=== PATIENT | female | born 1965 | race Caucasian/White ===

== ENCOUNTER 2016-06-23 18:43 | Emergency (ER) | payer BC, OTHER ==
[~2016-06-23] VITALS: Ht 162.6 cm; Wt 83.4 kg
[~2016-06-23 18:43] MED LIST: AMOXICILLIN500 M1 PO; ANAPROX DS550 M1 PO; ASPIR-LOW81 MG PO; ATORVASTATIN CA20 MG PO; BACTRIM,SEPT1 TABLET PO; BENTYL2 MG/ML PO; BENTYL20 MG PO; CIPRO500 MG PO; CITALOPRAM HBR20 M1 PO; COLACE100 MG PO; DELTASONE20 M1 PO; DOXYCYCLINE150 MG PO; FIORICET,ESG1 TABLET PO; FLEXERIL10 MG PO; FLOMAX0.4 MG PO; FLONASE16 G1 BOTH NARES; HYCODAN SYRUP480 ML PO; HYDROCODON-ACE1 EAC7 PO; KEFLEX500 MG PO; LEXAPRO10 MG PO; LIPITOR20 MG PO; LISINOPRIL10 MG PO; LORTAB 5-325 M1 EACH PO; MECLIZINE HCL25 MG PO; MEDROL DOSEPAK4 MG PO; MIRALAX17 GM PO; MIRALAX255 GM PO; MOTRIN600 MG PO; MOTRIN800 MG PO; NAPROSYN500 MG PO; NOHOMEMEDS; NORCO 5/3251 TABLET PO; PERCOCET 5/31 TABLET PO; PHENERGAN-CODE120 ML PO; PREDNISONE20 MG PO; PRILOSEC40 MG PO; PriLOSEC PO; REGLAN10 MG PO; TAMSULOSIN HCL0.4 MG PO; TESSALON PERLE100 MG PO; TYLENOL EXTRA500 MG PO; TYLENOL WITH C1 EACH PO; VENTOLIN HFA18 GM IH; VICODIN 5-5001 EACH PO; VICODIN,LORT1 TABLET PO; WELLBUTRIN SR150 MG PO; ZITHROMAX Z-PA250 MG PO; ZOFRAN ODT8 MG PO; ZOFRAN4 MG PO; ZOLOFT50 MG PO; ZYVOX600 MG PO
[2016-06-23 19:36] LABS: ADD MIUA? YES; BILIRUBIN NEGATIVE; BLOOD NEGATIVE; COLOR YELLOW ((YELLOW)); GLUCOSE (STRIP) NEGATIVE; KETONES NEGATIVE; LEUKOCYTES NEGATIVE; NITRITE NEGATIVE; PROTEIN (STRIP) NEGATIVE; SPECIFIC GRAVITY 1.023 (1.000-1.030); UROBILINOGEN 0.2 MG/DL (0.2-1.0)
[2016-06-23 19:42] LABS: HEMATOCRIT 40.3 % (36.0-46.0); MCH 29.1 PG (29.0-34.0); MCHC 33.3 G/DL (30.0-36.0); MCV 87.6 FL (83-99); MEAN PLAT.VOLUME 10.3 uM^3 (9.5-12.4); PLATELET COUNT 239 K/uL (156-360); RBC DIS.WIDTH-CV 13.1 % (11.8-14.6); RBC DIS.WIDTH-SD 42.3 % (39-53); WHITE BLOOD COUNT 5.4 K/uL (4.1-10.2)
[2016-06-23 19:50] LABS: BACTERIA RARE /HPF; EPITHELIAL CELLS 2+ /HPF; MUCUS TRACE /LPF; RED BLOOD CELLS 0-5 /HPF (0-5); UCUL ADDED? NO; WHITE BLOOD CELLS 0-5 /HPF (0-5)
[2016-06-23 19:50] LABS: CHLORIDE 107 mEq/L (99-109); POTASSIUM 3.6 mEq/L (3.7-5.4); SODIUM 140 mEq/L (136-147)
[2016-06-23 19:52] LABS: GLUCOSE 91 mg/dL (70-99)
[2016-06-23 19:53] LABS: ANION GAP 9 MEQ/L (2-14)
[2016-06-23 19:56] LABS: GFR ESTIMATE (CALCULATED) > 59 mL/min/
[2016-06-23 19:57] LABS: UREA NITROGEN (BUN) 10 mg/dL (9-23)
[2016-06-23 21:55] LABS: TOTAL BILIRUBIN 0.3 mg/dL (0.0-1.0)
[2016-06-23] MEDS ORDERED: ZOFRAN ODT4 MG PO (21:55)
[2016-06-23] MEDS ORDERED: BENTYL20 MG PO (21:55)
[2016-06-23 21:56] LABS: ALKALINE PHOSPHATASE 108 IU/L (3-129)
[2016-06-23 21:58] LABS: DIRECT BILIRUBIN 0.1 mg/dL (0.0-0.3)
[2016-06-23 22:00] VITALS: BP 140/85
[2016-06-23 22:00] LABS: LIPASE 19 U/L (1.0-51.0)
== END 2016-06-23 22:01 | disposition home or self-care (01) ==
LOC: EME 18:43
DX: R10.32 Left lower quadrant pain (principal); R11.2 Nausea with vomiting, unspecified; Z87.442 Personal history of urinary calculi; I10 Essential (primary) hypertension; Z90.710 Acquired absence of both cervix and uterus; Z90.49 Acquired absence of other specified parts of digestive tract; F17.200 Nicotine dependence, unspecified, uncomplicated
CPT/HCPCS: 74000; 80048; 80076; 81003; 83690; 85027; 99281; 99284; J2765; J3010; J7030

== ENCOUNTER 2016-09-13 21:22 | Emergency (ER) | payer OTHER ==
[~2016-09-13] VITALS: Ht 162.6 cm; Wt 80.1 kg
[~2016-09-13 21:22] MED LIST changes: +ZOFRAN ODT4 MG PO
[2016-09-14] MEDS ORDERED: PERCOCET 5/31 TABLET PO (01:48)
[2016-09-14] MEDS ORDERED: AUGMENTIN875 MG PO (01:48)
[2016-09-14 02:31] VITALS: BP 150/114
== END 2016-09-14 02:36 | disposition home or self-care (01) ==
LOC: EME 21:22
DX: S62.616B Displaced fracture of proximal phalanx of right little finger, initial encounter for open fracture (principal); S61.451A Open bite of right hand, initial encounter; W54.0XXA Bitten by dog, initial encounter; I10 Essential (primary) hypertension; F41.9 Anxiety disorder, unspecified; F32.9 Major depressive disorder, single episode, unspecified; F17.200 Nicotine dependence, unspecified, uncomplicated; Z23 Encounter for immunization
CPT/HCPCS: 73110; 73130; 99281; 99285; J0295; J2270; J2405; J3010; J7050

== ENCOUNTER 2016-09-24 17:55 | Emergency (ER) | payer OTHER ==
[~2016-09-24] VITALS: Ht 162.6 cm; Wt 80.1 kg
[~2016-09-24 17:55] MED LIST changes: +AUGMENTIN875 MG PO
[2016-09-24 19:17] LABS: HEMATOCRIT 38.4 % (36.0-46.0); MCHC 34.4 G/DL (30.0-36.0); MCV 87.3 FL (83-99); MEAN PLAT.VOLUME 9.8 uM^3 (9.5-12.4); PLATELET COUNT 237 K/uL (156-360); RBC DIS.WIDTH-CV 13.1 % (11.8-14.6); RBC DIS.WIDTH-SD 41.8 % (39-53); WHITE BLOOD COUNT 6.3 K/uL (4.1-10.2)
[2016-09-24 19:29] LABS: CHLORIDE 106 mEq/L (99-109); POTASSIUM 3.6 mEq/L (3.7-5.4); SODIUM 142 mEq/L (136-147)
[2016-09-24 19:30] LABS: GLUCOSE 81 mg/dL (70-99)
[2016-09-24 19:32] LABS: ANION GAP 9 MEQ/L (2-14)
[2016-09-24 19:34] LABS: GFR ESTIMATE (CALCULATED) > 59 mL/min/
[2016-09-24 19:35] LABS: UREA NITROGEN (BUN) 12 mg/dL (9-23)
[2016-09-24] MEDS ORDERED: ZOFRAN ODT4 MG PO (20:17)
[2016-09-24] MEDS ORDERED: PERCOCET 5/31 TABLET PO (20:17)
[2016-09-24 20:36] VITALS: BP 111/82
== END 2016-09-24 20:37 | disposition home or self-care (01) ==
LOC: EME 17:55
PROVIDERS: Nurse Practitioner Family
PROC: 2W3CX1Z Immobilization of Right Lower Arm using Splint (ICD-10-PCS; principal; 2016-09-24)
DX: S62.616A Displaced fracture of proximal phalanx of right little finger, initial encounter for closed fracture (principal); W54.0XXA Bitten by dog, initial encounter; R11.2 Nausea with vomiting, unspecified; Z86.14 Personal history of Methicillin resistant Staphylococcus aureus infection; F17.200 Nicotine dependence, unspecified, uncomplicated
CPT/HCPCS: 73130; 80048; 85027; 99281; 99283

== ENCOUNTER 2016-10-05 20:19 | Emergency (ER) | payer OTHER ==
[~2016-10-05] VITALS: Ht 162.6 cm; Wt 80.9 kg
[2016-10-05 21:08] LABS: HEMATOCRIT 38.8 % (36.0-46.0); MCH 29.7 PG (29.0-34.0); MCHC 33.8 G/DL (30.0-36.0); MEAN PLAT.VOLUME 9.8 uM^3 (9.5-12.4); PLATELET COUNT 205 K/uL (156-360); RBC DIS.WIDTH-CV 13.2 % (11.8-14.6); RBC DIS.WIDTH-SD 43.2 % (39-53); RED BLOOD COUNT 4.41 M/uL (3.80-5.20); WHITE BLOOD COUNT 5.1 K/uL (4.1-10.2)
[2016-10-05 21:16] LABS: CHLORIDE 106 mEq/L (99-109); POTASSIUM 3.8 mEq/L (3.7-5.4); SODIUM 140 mEq/L (136-147)
[2016-10-05 21:18] LABS: GLUCOSE 103 mg/dL (70-99)
[2016-10-05 21:19] LABS: ANION GAP 9 MEQ/L (2-14)
[2016-10-05 21:20] LABS: TOTAL BILIRUBIN 0.2 mg/dL (0.0-1.0)
[2016-10-05 21:21] LABS: ALKALINE PHOSPHATASE 115 IU/L (3-129)
[2016-10-05 21:22] LABS: GFR ESTIMATE (CALCULATED) > 59 mL/min/
[2016-10-05 21:23] LABS: UREA NITROGEN (BUN) 14 mg/dL (9-23)
[2016-10-05 21:30] LABS: QUANTITATIVE HCG < 4.0 MIU/ML
[2016-10-05 22:25] VITALS: BP 127/95
== END 2016-10-05 22:26 | disposition home or self-care (01) ==
LOC: EME 20:19
DX: M79.641 Pain in right hand (principal); M79.89 Other specified soft tissue disorders; Z98.890 Other specified postprocedural states; W54.0XXS Bitten by dog, sequela; Z86.14 Personal history of Methicillin resistant Staphylococcus aureus infection; F17.200 Nicotine dependence, unspecified, uncomplicated
CPT/HCPCS: 80053; 81003; 84702; 85027; 99281; 99284

== ENCOUNTER 2016-11-04 22:46 | Emergency (ER) | payer OTHER ==
[~2016-11-04] VITALS: Ht 165.1 cm; Wt 83.6 kg
[2016-11-04 23:46] LABS: EOSINOPHIL (%) 1.7 % (0-5); EOSINOPHIL COUNT 0.1 K/uL (0-0.3); HEMATOCRIT 36.7 % (36.0-46.0); IMMATURE GRANULOCYTE (%) 0.3 % (0.0-0.7); INSTRUMENT ABS NEUTROPHIL CT 2.9 K/uL; LYMPHOCYTE COUNT 2.5 K/uL (1.0-2.8); MCHC 34.1 G/DL (30.0-36.0); MONOCYTE (%) 6.9 % (3-12); MONOCYTE COUNT 0.4 K/uL (0-0.8); NEUTROPHIL (%) 49.4 % (45-76); NEUTROPHIL COUNT 2.9 K/uL (1.8-6.4); PLATELET COUNT 209 K/uL (156-360); RBC DIS.WIDTH-CV 13.6 % (11.8-14.6); RED BLOOD COUNT 4.17 M/uL (3.80-5.20); WHITE BLOOD COUNT 5.9 K/uL (4.1-10.2)
[2016-11-04 23:54] LABS: CHLORIDE 104 mEq/L (99-109); POTASSIUM 3.2 mEq/L (3.7-5.4); SODIUM 140 mEq/L (136-147)
[2016-11-04 23:57] LABS: GLUCOSE 110 mg/dL (70-99)
[2016-11-04 23:58] LABS: ANION GAP 13 MEQ/L (2-14)
[2016-11-04 23:59] LABS: TOTAL BILIRUBIN 0.2 mg/dL (0.0-1.0)
[2016-11-05] LABS: ALKALINE PHOSPHATASE 105 IU/L (3-129); GFR ESTIMATE (CALCULATED) > 59 mL/min/
[2016-11-05 00:01] LABS: UREA NITROGEN (BUN) 12 mg/dL (9-23)
[2016-11-05] MEDS ORDERED: PERCOCET 5/31 TABLET PO (01:15)
[2016-11-05] MEDS ORDERED: AUGMENTIN875 MG PO (01:15)
[2016-11-05 01:32] VITALS: BP 150/70
== END 2016-11-05 01:33 | disposition home or self-care (01) ==
LOC: EME 22:46
PROVIDERS: Emergency Medicine
DX: L03.113 Cellulitis of right upper limb (principal); Z98.890 Other specified postprocedural states; S62.606S Fracture of unspecified phalanx of right little finger, sequela; W54.0XXS Bitten by dog, sequela; R11.0 Nausea; Z86.14 Personal history of Methicillin resistant Staphylococcus aureus infection; Z90.710 Acquired absence of both cervix and uterus; F17.200 Nicotine dependence, unspecified, uncomplicated
CPT/HCPCS: 80053; 85025; 87040; 99281; 99284; J0295; J2270; J2405; J7040; J7050

== ENCOUNTER 2017-01-13 18:13 | Emergency (ER) | payer OTHER ==
[~2017-01-13] VITALS: Ht 162.6 cm; Wt 84.5 kg
[2017-01-13 18:37] LABS: HEMATOCRIT 37.1 % (36.0-46.0); MCH 30.7 PG (29.0-34.0); MCHC 34.8 G/DL (30.0-36.0); MCV 88.3 FL (83-99); PLATELET COUNT 230 K/uL (156-360); RBC DIS.WIDTH-CV 13.3 % (11.8-14.6); RBC DIS.WIDTH-SD 43.3 % (39-53); WHITE BLOOD COUNT 4.6 K/uL (4.1-10.2)
[2017-01-13 18:53] LABS: CHLORIDE 108 mEq/L (99-109); POTASSIUM 3.8 mEq/L (3.7-5.4); SODIUM 141 mEq/L (136-147)
[2017-01-13 18:55] LABS: GLUCOSE 93 mg/dL (70-99)
[2017-01-13 18:56] LABS: ANION GAP 10 MEQ/L (2-14)
[2017-01-13 18:59] LABS: GFR ESTIMATE (CALCULATED) > 59 mL/min/; UREA NITROGEN (BUN) 11 mg/dL (9-23)
[2017-01-13 19:19] LABS: MAGNESIUM 2.3 mg/dL (1.3-2.7)
[2017-01-13 19:26] LABS: CREATINE KINASE 137 IU/L (1-294)
[2017-01-13 19:37] LABS: TROP-I INTERPRETATION NEGATIVE; TROPONIN-I < 0.01 ng/mL (0.0-0.30)
[2017-01-13 22:08] LABS: TROP-I INTERPRETATION NEGATIVE; TROPONIN-I < 0.01 ng/mL (0.0-0.30)
[2017-01-13] MEDS ORDERED: INDOCIN50 MG PO (22:45)
[2017-01-13] MEDS ORDERED: ASPIRIN81 M2 PO (22:45)
[2017-01-13 23:02] VITALS: BP 127/82
== END 2017-01-13 23:02 | disposition home or self-care (01) ==
LOC: EME 18:13
PROVIDERS: Physician Assistant
DX: R07.89 Other chest pain (principal); M62.830 Muscle spasm of back; F17.200 Nicotine dependence, unspecified, uncomplicated; F32.9 Major depressive disorder, single episode, unspecified; I10 Essential (primary) hypertension; Z87.442 Personal history of urinary calculi; F41.9 Anxiety disorder, unspecified; Z88.8 Allergy status to other drugs, medicaments and biological substances; Z86.73 Personal history of transient ischemic attack (TIA), and cerebral infarction without residual deficits
CPT/HCPCS: 71020; 80048; 82550; 83735; 84484; 85027; 85379; 93005; 99281; 99284

== ENCOUNTER 2017-03-01 18:37 | Emergency (ER) | payer OTHER ==
[~2017-03-01] VITALS: Ht 162.6 cm; Wt 88.7 kg
[~2017-03-01 18:37] MED LIST changes: +ASPIRIN81 M2 PO; +INDOCIN50 MG PO
[2017-03-01 20:09] LABS: HEMATOCRIT 39.6 % (36.0-46.0); HEMOGLOBIN 13.9 G/DL (11.9-15.5); MCHC 35.1 G/DL (30.0-36.0); MCV 88.2 FL (83-99); PLATELET COUNT 216 K/uL (156-360); RBC DIS.WIDTH-CV 13.1 % (11.8-14.6); RBC DIS.WIDTH-SD 42.5 % (39-53); RED BLOOD COUNT 4.49 M/uL (3.80-5.20); WHITE BLOOD COUNT 6.9 K/uL (4.1-10.2)
[2017-03-01 20:24] LABS: ALBUMIN 4.1 g/dL (3.2-4.8)
[2017-03-01 20:25] LABS: CHLORIDE 109 mEq/L (99-109); POTASSIUM 4.1 mEq/L (3.7-5.4); SODIUM 139 mEq/L (136-147)
[2017-03-01 20:27] LABS: GLUCOSE 89 mg/dL (70-99); TOTAL PROTEIN 6.7 g/dL (6.4-8.3)
[2017-03-01 20:29] LABS: TOTAL BILIRUBIN 0.2 mg/dL (0.0-1.0)
[2017-03-01 20:31] LABS: ALKALINE PHOSPHATASE 112 IU/L (3-129); CREATININE 0.7 mg/dL (0.6-1.3); GFR ESTIMATE (CALCULATED) > 59 mL/min/
[2017-03-01 20:32] LABS: UREA NITROGEN (BUN) 11 mg/dL (9-23)
[2017-03-01 20:33] LABS: AST (GOT) 15 IU/L (2-34)
[2017-03-01 20:34] LABS: ALT (GPT) 19 IU/L (3-49); LIPASE 19 U/L (1.0-51.0)
[2017-03-01 20:42] LABS: QUANTITATIVE HCG < 4.0 MIU/ML
[2017-03-01 21:20] LABS: APPEARANCE CLEAR ((CLEAR)); BILIRUBIN NEGATIVE; BLOOD NEGATIVE; COLOR YELLOW ((YELLOW)); GLUCOSE (STRIP) NEGATIVE; KETONES NEGATIVE; LEUKOCYTES NEGATIVE; NITRITE NEGATIVE; PROTEIN (STRIP) NEGATIVE; SPECIFIC GRAVITY 1.025 (1.000-1.030); UCUL ADDED? NO; UROBILINOGEN 0.2 MG/DL (0.2-1.0)
[2017-03-01] MEDS ORDERED: MIRALAX255 GM PO (23:42)
[2017-03-02 00:09] VITALS: BP 127/73
== END 2017-03-02 00:11 | disposition home or self-care (01) ==
LOC: EME 18:37 → RME 18:37
DX: R10.11 Right upper quadrant pain (principal); R14.0 Abdominal distension (gaseous); K59.00 Constipation, unspecified; I10 Essential (primary) hypertension; F41.9 Anxiety disorder, unspecified; F32.9 Major depressive disorder, single episode, unspecified; F17.200 Nicotine dependence, unspecified, uncomplicated; Z87.442 Personal history of urinary calculi; Z86.14 Personal history of Methicillin resistant Staphylococcus aureus infection; Z90.710 Acquired absence of both cervix and uterus; Z88.1 Allergy status to other antibiotic agents; Z88.8 Allergy status to other drugs, medicaments and biological substances
CPT/HCPCS: 74018; 76705; 80053; 81003; 83690; 84702; 85027; 99281; 99284; J3010

== ENCOUNTER → 2017-03-15 | Outpatient (CLI) | payer OTHER | END | disposition home or self-care (01) | LOC: NUC 06:38 | DX: R10.9 Unspecified abdominal pain (principal) | CPT/HCPCS: 78227; A9537 ==

== ENCOUNTER → 2017-04-23 | Outpatient (CLI) | payer OTHER | END | disposition home or self-care (01) | LOC: NUC 14:49 | DX: G90.511 Complex regional pain syndrome I of right upper limb (principal) | CPT/HCPCS: 78315; 78999; A9503 ==